=== PATIENT | female | born 1995 | race Caucasian/White ===

== ENCOUNTER 2020-04-19 00:18 | Emergency (ER) | payer OTHER ==
[~2020-04-19] VITALS: Ht 160 cm; Wt 73.5 kg
[2020-04-19 00:21] VITALS: BP 122/65
--- NOTE | 2020-04-19 01:10 | NUR ---
ERMD AT BEDSIDE FOR MEDICAL EVALUATION.
[2020-04-19] MEDS: predniSONE 20 MG TAB PO ONE (01:24)
--- NOTE | 2020-04-19 01:26 | NUR ---
PT AMBULATED TO RESTROOM W/ STEADY GAIT.
[2020-04-19 01:36] VITALS: BP 122/65
--- NOTE | 2020-04-19 01:36 | NUR ---
Patient discharged with v/s stable. Written and verbal after care instructions given and explained. Patient alert, oriented and verbalized understanding of instructions. Ambulatory with steady gait. All questions addressed prior to discharge. ID band removed. Patient advised to follow up with PMD. Rx of MEDROL & BENADRYL given. Patient educated on indication of medication including possible reaction and side effects. Opportunity to ask questions provided and answered.
== END 2020-04-19 01:36 | disposition home or self-care (01) ==
LOC: MED 00:18
DX: L50.9 Urticaria, unspecified (principal); F84.0 Autistic disorder
CPT/HCPCS: 99283; J7512; Q0163